=== PATIENT | female | born 1980 | race Caucasian/White ===

== ENCOUNTER → 2016-07-17 | Outpatient (CLI) | payer BC ==
--- NOTE | 2016-07-17 10:28 | REP ---
RIGHT HAND, FIVE VIEWS: There is no evidence of an acute fracture, dislocation or intrinsic bone disease. IMPRESSION: No fracture or dislocation. Signed by Yariel Salmeron MD 07/17/2016 05:16 P
== END ==
LOC: M LRY 09:24
PROVIDERS: ATTEND Family Medicine
DX: S69.91XA Unspecified injury of right wrist, hand and finger(s), initial encounter (principal); W18.30XA Fall on same level, unspecified, initial encounter; Y92.009 Unspecified place in unspecified non-institutional (private) residence as the place of occurrence of the external cause

== ENCOUNTER → 2017-10-07 | Outpatient (REF) | payer BC ==
[2017-10-07 11:30] LABS: BASO % 0.3 % (0.0-1.0); EOS # 0.1 10^3/uL (0.0-0.50); EOS % 2.3 % (0.0-3.0); HEMATOCRIT 40.9 % (36.0-47.0); HEMOGLOBIN 14.1 g/dl (12.0-15.5); IMMATURE GRANULOCYTE % 0.3 % (0-3.0); LYMPH # 1.8 10^3/uL (1.5-4.5); LYMPH % 31.8 % (24.0-44.0); MEAN CORPUSCULAR HEMOGLOBIN 31.2 pg (27.0-33.0); MEAN CORPUSCULAR HGB CONC 34.5 g/dl (32.0-36.5); MEAN CORPUSCULAR VOLUME 90.5 fl (80.0-96.0); MONO # 0.4 10^3/uL (0.0-0.8); MONO % 6.1 % (0.0-5.0); NEUTROPHILS # 3.4 10^3/uL (1.8-7.7); NEUTROPHILS % 59.2 % (36.0-66.0); PLATELET COUNT, AUTOMATED 216 10^3/uL (150-450); RED BLOOD COUNT 4.52 10^6/uL (4.00-5.40); RED CELL DISTRIBUTION WIDTH 12.8 % (11.5-14.5); WHITE BLOOD COUNT 5.7 10^3/uL (4.0-10.0)
[2017-10-07 11:40] LABS: AMORPHOUS SEDIMENT SMALL (NEGATIVE); APPEARANCE, URINE CLEAR (CLEAR); BACTERIA, URINE AUTO NEGATIVE (NEGATIVE); BILIRUBIN, URINE AUTO NEGATIVE (NEGATIVE); BLOOD, URINE BLOOD 3+ (NEGATIVE); COLOR, URINE YELLOW (YELLOW); GLUCOSE, URINE (UA) AUTO NEGATIVE (NEGATIVE); KETONE, URINE AUTO NEGATIVE (NEGATIVE); LEUKOCYTE ESTERASE, URINE AUTO NEGATIVE (NEGATIVE); MUCUS, URINE SMALL (NEGATIVE); NITRITE, URINE AUTO NEGATIVE (NEGATIVE); PROTEIN, URINE AUTO NEGATIVE (NEGATIVE); RBC, URINE AUTO 92 /HPF (0-3); SPECIFIC GRAVITY URINE AUTO 1.016 (1.002-1.035); SQUAMOUS EPITHELIAL CELL UR AU 1 /HPF (0-6); UROBILINOGEN, URINE AUTO 0.2 mg/dL (0.0-2.0); WBC, URINE AUTO 1 /HPF (0-3)
[2017-10-07 11:59] LABS: ANION GAP 7 MEQ/L (8-16); BLOOD UREA NITROGEN 14 MG/DL (7-18); CALCIUM LEVEL 8.8 MG/DL (8.5-10.1); CARBON DIOXIDE LEVEL 31 MEQ/L (21-32); CHLORIDE LEVEL 104 MEQ/L (98-107); GLOMERULAR FILTRATION RATE > 60.0 (>60); GLUCOSE, FASTING 94 MG/DL (70-100); POTASSIUM SERUM 4.2 MEQ/L (3.5-5.1); SODIUM LEVEL 142 MEQ/L (136-145)
== END ==
LOC: M SFHCLERA 07:50
DX: R53.83 Other fatigue (principal)
CPT/HCPCS: 84443

== ENCOUNTER → 2017-10-29 | Outpatient (CLI) | payer BC ==
[~2017-10-29] MED LIST: ISOVUE-370 76% 100ML VIAL (Q9967) As Ordered
== END ==
LOC: M RAD 07:38
DX: R31.29 Other microscopic hematuria (principal)
CPT/HCPCS: Q9967

== ENCOUNTER → 2018-07-27 | Outpatient (CLI) | payer BC, OTHER ==
[~2018-07-27] VITALS: Ht 167.6 cm; Wt 98.9 kg
[2018-07-27] VITALS (7 sets, daily range): BP systolic 115–132; BP diastolic 73–85
[~2018-07-27] MED LIST changes: +COLA100C5 PO; +DOCUSATE SODIUM 100 MG CAP PO PRN; +FAMOTIDINE 20 MG TAB PO SCH; -ISOVUE-370 76% 100ML VIAL (Q9967) As Ordered; +PEPC40TA12 PO; +PRENTAB9 PO; +RANI15TA PO; +RANI1SYP PO
[2018-07-27 03:37] LABS: HEMATOCRIT 41.3 % (36.0-47.0); HEMOGLOBIN 14.6 g/dl (12.0-15.5); MEAN CORPUSCULAR HEMOGLOBIN 32.2 pg (27.0-33.0); MEAN CORPUSCULAR HGB CONC 35.4 g/dl (32.0-36.5); PLATELET COUNT, AUTOMATED 162 10^3/uL (150-450); RED BLOOD COUNT 4.54 10^6/uL (4.00-5.40); WHITE BLOOD COUNT 7.3 10^3/uL (4.0-10.0)
--- NOTE | 2018-07-27 04:24 | HPE ---
DATE OF ADMISSION: 07/27/2018 HISTORY: A 38-year-old 1, para 0, last menstrual period (LMP) 11/20/2017, estimated date of confinement (EDC) 08/29/2018, due for primary section 08/16/2018 at 35 and 2 woke up at 0100 with bleeding. Known placenta previa one episode no contractions. RISK FACTORS: Placenta previa complete, advanced maternal age (AMA) 38 years of age, loop electrosurgical excision procedure (LEEP) in 2012 and a body mass index (BMI) of 31.8. LABORATORIES: O negative, human immunodeficiency virus (HIV) negative, hepatitis negative, RPR negative, rubella immune. Varicella immune. Pap is normal. Urine is negative. Gonorrhea and chlamydia negative. Initially 1-hour glucose was 108. The 28-week GTT 139. Her 3-hour test was 94/112/86/95. PHYSICAL EXAMINATION: On examination no acute distress. Symphysis fundus height is 35, nontender uterus. Category one strip with occasional contractions. She has no vaginal bleeding or loss. The pad is dry. The pad she came in with had one spot of bleeding. She did not have intercourse tonight. Blood pressure is 117/75, respirations are 16, pulse is 95 and temperature is 97.8. Her urine is 1015, pH 7, trace of protein in 250 blood. The rest of the examination is unremarkable. She is normocephalic, atraumatic. Neck: Full range of motion. Pupils equal and reactive to light. Distal pulses are symmetric. No evidence of deep vein thrombosis (DVT), pulmonary embolism (PE) or superficial phlebitis. Chest is clear bilateral bases. No wheezes or rhonchi. No costovertebral angle (CVA) tenderness. Abdomen: Soft, four quadrant bowel sounds are noted. Symphysis fundus height is appropriate. There is no bleeding or loss of fluid. She has no rashes, lesions or pruritus. No arthralgia, myalgia. No complaint of joint pain. No complaint of cough, wheeze, shortness breath or dyspnea on exertion. No bleeding. Neuro complete. No frequency, nausea, vomiting, diarrhea or constipation. No diabetic issues. Her 3-hour GTT was normal. She had a loop electrosurgical excision procedure (LEEP) cone in 2012. WT in 2004. ALLERGIES: She has allergies to ERYTHROMYCIN. She is presently on ranitidine for gastric reflux and heartburn. She did have asthma but exercise-induced. She does not take any medications. Has a history of anxiety. FAMILY HISTORY: Family history is noncontributory. SOCIAL HISTORY: She does not smoke, drink abuse drugs. She is to a soldier. No domestic violence. Good support systems. SUMMARY: We had a 36 and 2 with one episode of bleeding with placenta previa and known. PLAN: Plan is to hydrate the patient intravenous (IV) line access for necessity of either blood work or immediate section. Observational status for 24 hours. Type and screen. The patient and expressed understanding of the plan of care.
[2018-07-27] MEDS: LR 1,000 ML IV SCH ×2 (04:44→13:07)
--- NOTE | 2018-07-27 05:35 | REPVR ---
EXAM: US Biophysical Profile Without Non-Stress Test EXAM DATE/TIME: 07/27/2018 4:33 AM CLINICAL HISTORY: 38 years old, female; Placenta previa with vaginal bleeding; ; Additional info: Evaluate cervical length. TECHNIQUE: Imaging protocol: US biophysical profile without non-stress testing. COMPARISON: No relevant prior studies available. FINDINGS: Fetus: There is a single live intrauterine gestation in vertex position. Last menstrual period: 11/22/2017 Estimated gestational age by LMP: 35 weeks 2 days Estimated due date by LMP: 08/29/2018 Breathin/2 Gross body movements: 2/2 tone: 2/2 Qualitative amniotic fluid: 2/2 Amniotic fluid index: 12 cm Heart rate: 147 beats per minute Placenta: The placenta is grade 1 and covers the internal os of the cervix (placenta previa). Cervix: The cervix measures 1.9 cm in length. There is funneling of the internal os of the cervix. Umbilical artery Doppler: PSV = 48.5 cm/s; EDV = 18.9 cm/s; S/D = 2.57 (2.00 - 3.00); RI = 0.61 (0.59 - 075) IMPRESSION: 1. Single viable intrauterine in vertex position. 2. Biophysical profile score is 8 out of 8. 3. Placenta previa. 4. Cervical length of 1.9 cm and there is funneling of the internal os. Electronically signed by: Faustino Reddy On 07/27/2018 05:34:43 AM
--- NOTE | 2018-07-27 06:38 | NUR ---
0600 am no bleeding patient up to bathroom, no issue no cramping, us shows complete previa, cervix 1.9 cm with funneling vertex. Plan maintain monitoring if no bleeding x 24 hours possible discharge
[2018-07-27] MEDS: BETAMETHASONE SOLUSPAN 6MG/ML INJ 5ML (J0702) IM SCH (08:24)
[2018-07-27] MEDS: FAMOTIDINE 20 MG TAB PO PRN ×2 (11:31→21:18)
[2018-07-27] MEDS: NIFEdipine 30 MG XL TAB PO SCH (12:27)
[2018-07-28 01:16] VITALS: BP 107/64
[2018-07-28 07:21] VITALS: BP 121/63
[2018-07-28] MEDS: BETAMETHASONE SOLUSPAN 6MG/ML INJ 5ML (J0702) IM SCH (08:09)
[2018-07-28 09:01] VITALS: BP 121/75
[2018-07-28] MEDS: NIFEdipine 30 MG XL TAB PO SCH (09:01)
== END ==
LOC: M LDO 02:24
PROVIDERS: ATTEND Obstetrics & Gynecology
DX: O46.93 Antepartum hemorrhage, unspecified, third trimester (principal); O44.13 Complete placenta previa with hemorrhage, third trimester; O47.03 False labor before 37 completed weeks of gestation, third trimester; Z3A.35 35 weeks gestation of pregnancy
CPT/HCPCS: 59025; 76815; 76817; 76819; 76820; 85027; 86780; 86850; 86870; 86900; 86901; 96360; 96361; 96372; G0378; G0463; J0702

== ENCOUNTER 2018-08-06 02:48 | Inpatient (IN) | payer OTHER ==
[2018-08-06] VITALS (10 sets, daily range): BP systolic 107–134; BP diastolic 57–84
[~2018-08-06] VITALS: Ht 167.6 cm; Wt 99.4 kg
[~2018-08-06 02:48] MED LIST changes: -DOCUSATE SODIUM 100 MG CAP PO PRN; -FAMOTIDINE 20 MG TAB PO SCH
[2018-08-06] MEDS ORDERED: LR 1,000 ML IV SCH ×2 (03:13→11:00)
[2018-08-06] MEDS ORDERED: LACTATED RINGER'S 1000 ML IV STA (03:13)
[2018-08-06] MEDS ORDERED: BICITRA 30ML SOLN UDC PO ONE (03:15)
[2018-08-06 03:45] LABS: HEMATOCRIT 33.1 % (36.0-47.0); HEMOGLOBIN 11.5 g/dl (12.0-15.5); MEAN CORPUSCULAR HEMOGLOBIN 31.6 pg (27.0-33.0); MEAN CORPUSCULAR HGB CONC 34.7 g/dl (32.0-36.5); MEAN CORPUSCULAR VOLUME 90.9 fl (80.0-96.0); PLATELET COUNT, AUTOMATED 245 10^3/uL (150-450); RED BLOOD COUNT 3.64 10^6/uL (4.00-5.40); WHITE BLOOD COUNT 12.4 10^3/uL (4.0-10.0)
[2018-08-06] MEDS ORDERED: CLAR1TAB13 PO (03:51)
--- NOTE | 2018-08-06 03:51 | HPEPDOC ---
Obstetrical History & Physical General Date of Admission August 06, 2018 at 03:13 History of Present Illness Lisette is a 38yo with SIUP at 36w5d by lmp c/w 11wk u/s presenting tonight wi th 2nd episode of vaginal bleeding in the setting of known placenta previa. She was sitting on the couch at home and noticed a large gush, went to the restroom where there was a lot of bright red blood in the toilet bowl. She put a pad on and was brought in by EMS. On presentation, pad was mostly saturated, but bleeding had slowed down and after using the restroom, she has only very scant bleeding on new pad after 20 minutes. She was admitted for observation on 07/27 with 1st episode of bleeding and received course of steroids. She had no further bleeding after discharge until this morning. Otherwise good movement. She feels occasional cramping but no obvious ctx. No f/c/n/v/CP/SOB. 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: Abnormal Pap (history of LEEP 2012) Past Medical History Medical History Obesity (starting BMI 31), GERD, childhood asthma, history of anxiety Surgical History: [place] teeth Family History Significant Family History: No pertinent family hx Social History Marital Status: Family situation: Spouse/partner home Psychosocial History: Anxiety * Smoker: non-smoker Alcohol: Denies Drugs: denies Imunizations Tdap status: current Influenza Status: current Allergies Coded Allergies: epinephrine (Verified Adverse Reaction, Intermediate, palpatations, 08/05/18) erythromycin base (Verified Adverse Reaction, Intermediate, nausea and vomitting, 08/05/18) Medications Scheduled No.137/Iron/Folic Acd ( Vitamin Tablet) 1 Each Tablet, 1 TAB PO DAILY Ranitidine Hcl (Ranitidine HCl) 150 Mg Tablet, 1 TAB PO BID Scheduled PRN Docusate Sodium (Colace) 100 Mg Capsule, 100 MG PO BIDP PRN for CONSTIPATION Physical Examination Physical Examination GENERAL: Alert and oriented times three. ABDOMEN: Gravid and non-tender to touch. FETUS: Is vertex (VTX) by TAUS at bedside EXTREMITIES: No edema No SSE exam performed at time of admission, but bleeding tapered such that after 20 minutes there was very scant blood on new bertha pad Vital Signs/I&O Vital Signs Date Time Temp Pulse Resp B/P (MAP) Pulse Ox O2 Delivery O2 Flow Rate FiO2 08/06/18 02:55 98.2 107 18 134/81 (98) Laboratory Data 24[facility] Laboratory Tests 2 08/06/18 03:20: Serology Scanned Report Hepatitis B Testing CBC/BMP 18 May H/H 11.9/35.5, plt 233 Pertinent Laboratoy Data Blood Type: O- RBC Antibody Screen: Negative HIV: Negative Hepatitis B: Negative Hepatitis C: Unknown Rapid Plasma Reagin: Nonreactive Rubella: Immune Varicella: Immune Chlamydia/Gonorrhea: Negative Group B Streptococcus: Unknown Quad Screen Test: Negative Cystic Fibrosis: Negative Glucose Tolerance Test: 139 (94/112/86/95) Anatomy Ultrasound Ultrasound Date: Apr 21, 2018 Placenta Location: Other (succenturiate lobe of placenta anterior connected by membranes to posterior placenta, crosses internal os) Normal Anatomy: Yes Placenta Previa: Yes Other Ultrasounds 07/27/18 SIUP 35w2d placenta grade 1 covers internal os, cervix 1.9cm in length with funneling of internal os, BPP 8/8 Steroid Therapy Steroid Therapy: Yes (07/27-) Assessment Heart Rate (FHR): 150 Variability: Moderate Accelerations: Positive Decelerations: None Tocometer Contractions: Yes Frequency: other (rare vs uterine irritability) Assessment/Plan Assessment Lisette is a 38yo with SIUP at 36w5d by lmp c/w 11wk u/s presenting tonight with 2nd episode of vaginal bleeding in the setting of known placenta previa. Bleeding started out brisk but has since become scant. Vitals wnl, exam benign. Cat I FHRT with only very rare ctx vs uterine irritability. Cephalic by TAUS. She is steroid complete as of 07/27-. PMhx/PNC complicated by: Known placenta previa with 1 prior episode of bleeding, Class 1 obesity with starting BMI 31, AMA (age 38), Rh negative (received rhogam at 28wk on 06/03), hx of LEEP in 2012, slightly elevated 1hr glucola (139) with normal 3hr GTT, childhood asthma, GERD Plan Admit and orient. Winchman/Crane Operator and consent for PLTCS Diet: NPO Labs and intravenous (IV) per unit protocol. Lactated Ringers (LR): Bolus 1000 mL, then at 125 mL/hr Discussed with patient that this is 2nd episode of vaginal bleeding near term with known placenta previa and management is PLTCS. She voices her desire to wait until later in the morning to proceed with PLTCS when Dr. Gage is here given that she has built rapport with him. I think this is very reasonable at this point given that she only has scant bleeding now, vitals wnl, Cat I FHRT, and in the morning there will be a more robust nursing/anesthesia team. Will alert NICU Dr and anesthesia to plan to proceed with PLTCS at 08:30. She understands that if bleeding becomes heavy again or if any signs of compromise develop, we will proceed with PLTCS sooner. All questions answered. MD Tejas Qureshi Katrina D MD August 06, 2018 03:51
[2018-08-06] MEDS ORDERED: ACETAMINOPHEN 650 MG SUPP As Ordered ONE (08:12)
--- NOTE | 2018-08-06 08:29 | IPNPDOC ---
Text Note Date of Service The patient was seen on 08/06/18. NOTE am note Patient doing well, has had no further bleeding. Vitals wnl Cat 1 FHRT uterine irritability Discussed plan of care with Dr. Gage who agrees on PLTCS this morning. He consented her in the office previously and we are obtaining that paperwork. He plans to proceed with PLTCS with Dr. Cortez as assist. Patient is amenable to plan. Dr. Thi Lazaro MD VS,Concepcion, I+O VS, Concepcion, I+O Laboratory Tests 08/06/18 03:35 Red Blood Count 3.64 L, Mean Corpuscular Volume 90.9, Mean Corpuscular Hemoglobin 31.6, Mean Corpuscular Hemoglobin Concent 34.7, Red Cell Distribution Width 13.1 Vital Signs Date Time Temp Pulse Resp B/P (MAP) Pulse Ox O2 Delivery O2 Flow Rate FiO2 08/06/18 07:34 98.0 92 18 125/77 (93) 98 I&O- Last 24 Hours up to 6 AM 08/06/18 06:00 Intake Total 960 ml Balance 960 ml Thi Lazaro MD August 06, 2018 08:29
[2018-08-06] MEDS ORDERED: BUPIVACAINE HCL 0.25% 10 ML VIAL As Ordered ONE (08:30)
[2018-08-06] MEDS ORDERED: NALBUPHINE HCL 10 MG/ML AMP (J2300) IV PRN ×2 (08:53→10:45)
[2018-08-06] MEDS ORDERED: diphenhydrAMINE INJ 50MG/ML VIAL (J1200) IV PRN (08:53)
[2018-08-06] MEDS ORDERED: NALOXONE INJ 0.4 MG/1 ML VIAL (J2310) IV PRN ×2 (08:53)
[2018-08-06] MEDS ORDERED: METOCLOPRAMIDE INJ 10MG/2ML VIAL (J2765) IV PRN (08:53)
[2018-08-06] MEDS ORDERED: ONDANSETRON 4MG/2ML VIAL (J2405) IV PRN ×2 (08:53→10:45)
[2018-08-06] MEDS: PRENATAL VITAMINS CHEWABLE TABLET PO SCH (09:00)
[2018-08-06] MEDS ORDERED: dexameTHASONE 4 MG/ML 1ML VIAL (J1100) As Ordered ONE (09:26)
[2018-08-06] MEDS ORDERED: PHENYLephrine HCL 500 MCG/5 ML (100MCG/ML) SYRINGE (J2370) As Ordered ONE (09:26)
[2018-08-06] MEDS ORDERED: MORPHINE PRES-FREE INJ 10 MG/10 ML VIAL (J2274) As Ordered ONE (09:26)
[2018-08-06] MEDS ORDERED: KETOROLAC 60 MG/2 ML VIAL (J1885) As Ordered ONE (09:26)
[2018-08-06] MEDS ORDERED: OXYTOCIN INJ 10 UNITS/ML VIAL (J2590) As Ordered ONE (09:26)
[2018-08-06] MEDS ORDERED: ONDANSETRON 4MG/2ML VIAL (J2405) As Ordered ONE (09:26)
[2018-08-06] MEDS ORDERED: ePHEDrine SULFATE 25 MG/5 ML(5MG/ML) SYRINGE As Ordered ONE (09:26)
[2018-08-06 09:37] LABS: CORD GAS ABE V 0.8; CORD GAS HCO3 V 27.4 MEQ/L; CORD GAS O2 SAT V 54.1 %; CORD GAS PCO2 V 51.3 mmHg; CORD GAS PH V 7.346 UNITS; CORD GAS PO2 V 21.2 mmHg; CORD GAS SBC V 24.1 MEQ/L
[2018-08-06 09:40] LABS: CORD GAS ABE A -0.4; CORD GAS HCO3 A 28.8 MEQ/L; CORD GAS O2 SAT A 25.8 %; CORD GAS PCO2 A 67.7 mmHg; CORD GAS PH A 7.247 UNITS; CORD GAS PO2 A 15.3 mmHg; CORD GAS SBC A 22.4 MEQ/L; CORD GAS TCO2 A 30.9 MEQ/L
[2018-08-06] MEDS ORDERED: MOM 30ML SUSPENSION UDC PO PRN (10:30)
[2018-08-06] MEDS ORDERED: ANUSOL HC CREAM 30GM TOP PRN (10:30)
[2018-08-06] MEDS ORDERED: ACETAMINOPHEN 500 MG TAB PO PRN (10:30)
[2018-08-06] MEDS ORDERED: ACETAMINOPHEN TAB 650MG DOSE (2X325MG) PO PRN (10:30)
[2018-08-06] MEDS ORDERED: RHOGAM 300 MCG (1500 IU) INJ (J2790) IM SCH (10:30)
[2018-08-06] MEDS ORDERED: MEASLES,MUMPS,RUBELLA VACCINE INJ (MMR-II) (90707) SC SCH (10:30)
[2018-08-06] MEDS ORDERED: PERCOCET 5MG/325MG TAB PO PRN ×3 (10:45→22:00)
[2018-08-06] MEDS ORDERED: MEPERIDINE INJ 25 MG/ML VIAL (J2175) IV PRN (10:45)
[2018-08-06] MEDS ORDERED: fentaNYL 100 MCG/2 ML INJECTION (J3010) IV PRN (10:45)
[2018-08-06] MEDS ORDERED: HYDROMORPHONE HCL 0.5 MG/ 0.5 ML SYRINGE (J1170 PER 1) IV PRN (10:45)
[2018-08-06] MEDS ORDERED: ACETAMINOPHEN 650 MG SUPP PR SCH (10:45)
[2018-08-06] MEDS ORDERED: BUPIVACAINE HCL 0.25% 10 ML VIAL SC ONE ×2 (11:00)
[2018-08-06] MEDS ORDERED: miSOPROStol 200 MCG TAB (S0191) PR ONE ×2 (11:00)
[2018-08-06] MEDS ORDERED: OXYTOCIN DRIP 30 UNITS in APPROPRIATE DILUENT 1 EA IV SCH (11:00)
[2018-08-06] MEDS ORDERED: OXYTOCIN INJ 10 UNITS/ML VIAL (J2590) IV ONE ×2 (11:00)
[2018-08-06] MEDS ORDERED: FENTANYL 2MCG/ML ROPIVACAINE 0.2% IN 0.9% NACL 100ML IVBAG As Ordered ONE (11:57)
--- NOTE | 2018-08-06 12:21 | RO ---
DATE OF PROCEDURE: 08/06/2018 PREOPERATIVE DIAGNOSIS: Placenta previa complete. gestation. AMA. vaginal bleeding POSTOPERATIVE DIAGNOSIS: Placenta previa complete. gestation. AMA. vaginal bleeding OPERATION PROPOSED: Primary section. OPERATION PERFORMED: Primary section. ANESTHESIA: Was spinal plus local anesthetic for intraperitoneal procedures. ESTIMATED BLOOD LOSS: 300 mL. SURGEON: Dr. Gage CHEMISTRY PHYSICS TEACHER: Dr. Cortez for extraction, retraction and visualization. OPERATION PERFORMED: Primary section. After adequate time-out, prepped, draped in the supine position, Steinberg catheter in the bladder draining clear urine, acetaminophen suppository 1300 mg per rectum given postoperative, Cytotec 1000 mg given postoperative. Appropriate antibiotic therapy and sequential on board. A low transverse incision was made into the uterus, passing through abdominal layers securing hemostasis. Opening peritoneal cavity we noticed the varicosities in the lower segment, we found a window supposedly where we could cut into the low transverse incision to the uterus moderate mount of bleeding ensued, Dr. Franco in attendance for resuscitation of . We had to pull aside the placenta and then there was bulging membranes there, we artificially ruptured membranes (ARMed) with clear liquid. We then extracted a live male 2614 grams, 5 pounds 12 ounces, scores of 7 and 9 at 1 and 5 minutes respectively. Arterial pH 7.24, base excess -0.4, venous pH 7.34, base excess 0.8. Three-vessels in the cord. The placenta was complete. We manually swept out the uterus with a dry sponge. There was no evidence of active tissue present anywhere. The uterus began to contract down under Pitocin IV five push and the rest in the bottle. The lower segment was visualized as well as the upper segment. Bladder was identified. We then went and closed the abdomen first layer continuous with 0 Vicryl. Then a interrupted second layer was performed. We visualized again one episode or area of bleeding which was oversewn with [id number] with that done reperitonealization was performed. With instrument pad count correct we visualized the right and left ovary and tube. The uterus was replaced back in the abdomen, one more evaluation, no evidence of active bleeding at lower segment. The uterus was contracted well down. We then closed the abdomen with a running stitch for the peritoneum, same for the fascia interrupted for subcutaneous Dexon to the skin Marcaine 0.25% 10 mL spray and Telfa. Manual expression of the uterus, uterus is two below. Digital examination old clots were removed from the vagina. The cervix was found to be dilated 1-2 cm. Digital examination - no evidence of active bleeding there. With that done the patient was placed in frog-leg position, acetaminophen suppository 1300 mg per rectum, Cytotec 1000 mg per rectum and the patient was then taken back to recovery in good condition. [facility]
[2018-08-06] MEDS: KETOROLAC 30 MG/ML VIAL (J1885) IV SCH ×2 (16:33→22:59)
[2018-08-06] MEDS: DOCUSATE SODIUM 100 MG CAP PO PRN (22:59)
[2018-08-07 02:00] VITALS: BP 102/51
[2018-08-07] MEDS: KETOROLAC 30 MG/ML VIAL (J1885) IV SCH (04:49)
[2018-08-07 06:00] VITALS: BP 101/57
[2018-08-07 07:22] LABS: HEMATOCRIT 26.1 % (36.0-47.0); MEAN CORPUSCULAR HEMOGLOBIN 32.5 pg (27.0-33.0); MEAN CORPUSCULAR HGB CONC 34.5 g/dl (32.0-36.5); MEAN CORPUSCULAR VOLUME 94.2 fl (80.0-96.0); PLATELET COUNT, AUTOMATED 175 10^3/uL (150-450); RED BLOOD COUNT 2.77 10^6/uL (4.00-5.40); WHITE BLOOD COUNT 13.1 10^3/uL (4.0-10.0)
[2018-08-07] MEDS: PRENATAL VITAMINS CHEWABLE TABLET PO SCH (08:45)
[2018-08-07] MEDS: DOCUSATE SODIUM 100 MG CAP PO PRN (08:47)
[2018-08-07 09:48] VITALS: BP 104/57
[2018-08-07] MEDS: IBUPROFEN 800 MG TAB PO SCH ×2 (12:41→20:29)
[2018-08-07 14:00] VITALS: BP 107/61
--- NOTE | 2018-08-07 14:14 | IPN ---
DATE: 08/07/2018 The nurse called me from . This lady had her Steinberg catheter out and was unable to void. She then eventually voided 125 mL. The bladder scan showed that there was a residual of about 950 mL and therefore in and out catheter was ordered and then the catheter was to remain overnight and removed at 0700 in the morning. We will reevaluate the bladder status after the Steinberg catheter is removed.
--- NOTE | 2018-08-07 14:32 | IPN ---
DATE: 08/07/2018 This lady is a 38-year-old patient who came in bleeding with known placenta previa she had a live male by primary section 5 pounds 12 ounces 2614 grams as 7 and 9 at 1 and 5 minutes respectfully. Arterial pH 7.24, base excess -0.4, venous pH 7.34, base excess 0.8. On her first day we discussed phlebitis, cystitis, mastitis, metritis, cellulitis, diet, exercise pain management, perineal rest and wound care. Presently doing well. Her Steinberg catheter was removed this morning after having had urinary retention 900 mL. She is post removal of catheter. She voided 600 mL. No evidence of dysuria, hematuria, urgency, frequency. Uterus is two below. Lochia is moderate. Four quadrant bowel sounds are noted. Incision is clean and dry. The rest examination is unremarkable. She is normocephalic, atraumatic. Neck: Full range of motion. Pupils equal and reactive to light. Distal pulses symmetric. No evidence of DVT, PE or superficial phlebitis. Chest is clear bilaterally bases. No wheezes or rhonchi. No complaints of cough, wheeze, shortness of breath or dyspnea on exertion. The blood pressure this morning is 104/57, respirations 16, pulse 87, temperature is 97.9. Her admitting hemoglobin was 11.5, hematocrit 33.1 and platelets were 245. day #1 hemoglobin 9.0, hematocrit 26.1 and platelets are 175. She is asymptomatic. She is walking around. No evidence to suggest any syncope or issues regarding her hemoglobin/hematocrit. Plan of care is to discharge with medications on Wednesday. Remove her IV site in her right arm today and have a 2-week incision check, a 6-week check and medications will be dispensed at discharge.
[2018-08-07 18:01] VITALS: BP 111/67
[2018-08-07 21:55] VITALS: BP 117/57
[2018-08-08 02:24] VITALS: BP 116/67
[2018-08-08] MEDS: IBUPROFEN 800 MG TAB PO SCH (04:12)
[2018-08-08] MEDS: DOCUSATE SODIUM 100 MG CAP PO PRN (06:32)
[2018-08-08 06:39] VITALS: BP 113/64
[2018-08-08] MEDS ORDERED: PRENCHW PO (06:55)
[2018-08-08] MEDS ORDERED: IBUP80TA PO (06:55)
[2018-08-08] MEDS ORDERED: PERCOCET PO (06:55)
[2018-08-08] MEDS ORDERED: COLA100C5 PO (06:55)
[2018-08-08] MEDS: PRENATAL VITAMINS CHEWABLE TABLET PO SCH (08:10)
--- NOTE | 2018-08-08 11:10 | DSES ---
DATE OF ADMISSION: 08/06/2018 DATE OF DISCHARGE: 08/08/2018 This 38-year-old 1 now para 1 admitted with a history of placenta previa total complete with bleeding had a primary section, male , 5 pounds 12 ounces, 2614 grams, scores of 7 and 9 at 1 and 5 minutes, respectfully. Arterial pH 7.24, base excess -0.4, venous pH 7.34, base excess 0.8. Her risk factors is she was an AMA placenta previa, bleeding, Rh negative, body mass index (BMI) is 31.1. On discharge, we discussed phlebitis, cystitis, mastitis, endometritis, cellulitis, diet, exercise, pain management, perineal, breast, and wound care. On discharge, her blood pressure was 113/64, respirations are 16, pulse is 70, temperature is 97.3. Her admitting hemoglobin 11.5, hematocrit 33.1, and platelets 245. Discharge hemoglobin 9.0, hematocrit 26.1, and platelets 175. The patient is asymptomatic. The rest of the examination unremarkable. Normocephalic, atraumatic. Neck: Full range of motions. Pupils equal and reactive to light. Chest is clear bilaterally to bases. No evidence of deep venous thrombosis (DVT), pulmonary embolism (PE), or superficial phlebitis. No wheezes or rhonchi. No costovertebral angle (CVA) tenderness. Abdomen: Soft. Uterus two below. Lochia is moderate. Incision is clean and dry, and four-quadrant bowel sounds are noted. No rashes, lesions, or pruritus. No arthralgia, myalgia. No complaint of joint pain. No complaint of cough, wheeze, shortness of breath, or dyspnea on exertion. In summary, we have a pretermer with a placenta previa, primary section, livebirth male . Baby was doing well until it was discovered had pneumothorax, was transferred to [facility], and the patient is planning on visiting her child today. She will have assistance with a ride.
== END 2018-08-08 08:55 | disposition home or self-care (01) | DRG 773 ==
LOC: M LDO 02:48 → M LDI 03:13 → M OBS 11:54
PROVIDERS: ADMIT Obstetrics & Gynecology; ATTEND Obstetrics & Gynecology
PROC: 10D00Z1 Extraction of Products of Conception, Low, Open Approach (ICD-10-PCS; principal; 2018-08-06 08:30)
DX: O44.13 Complete placenta previa with hemorrhage, third trimester (principal); Z3A.36 36 weeks gestation of pregnancy; Z37.0 Single live birth; R33.9 Retention of urine, unspecified; O99.89 Other specified diseases and conditions complicating pregnancy, childbirth and the puerperium